=== PATIENT | male | born 1990 | race Caucasian/White ===

== ENCOUNTER 2016-11-20 08:16 | Inpatient (IN) | payer SELFPAY ==
[2016-11-20 08:43] VITALS: BMI 26.1
--- NOTE | 2016-11-20 08:52 | HP ---
COWS - Scale Resting Pulse: 1= [place] 81-100 Sweatin= Chills/Flushing Restless Observation: 1= Difficult to Sit Still Pupil Size: 0= Normal to Room Light Bone or Joint Aches: 2= Severe Diffuse Aches Runny Nose/ Eye Tearin= Runny Nose/Eyes GI Upset > 30mins: 2= Nausea/Diarrhea Tremor Observation: 1= Tremor [place], Not Seen Yawning Observation: 1= 1-2x During Session Anxiety or Irritability: 1=Feels Anxious/Irritable Goose Flesh Skin: 0=Smooth Skin COWS Score: 12 Admission ROS BHS - HPI Chief Complaint: I'm tired, it's crazy what I have to do to get the pills,I want to stop, I want my life back Allergies/Adverse Reactions: Allergies Allergy/AdvReac Type Severity Reaction Status Date / Time No Known Allergies Allergy Verified 11/19/16 19:50 History of Present Illness: 26 yo white gentleman here for detox from oxycodone - first attempt at detox, previously in rehab [facility] for cannabis dependence. No seizure, never on methadone program. States was given oxycodone by previous girlfriend and got ' hooked'. Exam Limitations: Clinical Condition - Ebola screening Have you traveled outside of the country in the last 21 days: No Have you had contact with anyone from an Ebola affected area: No Have you been sick,other than usual withdrawal symptoms: No Do you have a fever: No - Review of Systems Constitutional: Chills, Loss of Appetite, Malaise, Changes in sleep EENT: reports: Nose Congestion Respiratory: reports: No Symptoms reported Cardiac: reports: No Symptoms Reported GI: reports: Nausea, Poor Appetite : reports: No Symptoms Reported Musculoskeletal: reports: Back Pain, Muscle Pain Integumentary: reports: No Symptoms Reported Neuro: reports: Headache Endocrine: reports: No Symptoms Reported Hematology: reports: No Symptoms Reported Psychiatric: reports: Judgement Intact, Mood/Affect Appropiate, Anxious Other Systems: Reviewed and Negative Patient History - Patient Medical History Hx Anemia: No Hx Asthma: No Hx Chronic Obstructive Pulmonary Disease (COPD): No Hx Cancer: No Hx Cardiac Disorders: No Hx Congestive Heart Failure: No Hx Hypertension: No Hx Hypercholesterolemia: No Hx Seizures: No Hx Dementia: No Hx Diabetes: No Hx Gastrointestinal Disorders: No Hx Liver Disease: No Hx Genitourinary Disorders: No Hx Sexually Transmitted Disorders: No Hx Renal Disease (ESRD): No Hx Thyroid Disease: No Hx Human Immunodeficiency Virus (HIV): No Hx Hepatitis C: No Hx Depression: No Hx Suicide Attempt: No Hx Bipolar Disorder: No Hx Schizophrenia: No - Patient Surgical History Past Surgical History: No - PPD History Previous Implant?: No Implanted On Prior [facility] Admission?: No PPD to be Administered?: Yes - Reproductive History Patient is a Female of Child Bearing Age (11 -55 yrs old): No (male) - Smoking Cessation Smoking history: Current every day smoker Have you smoked in the past 12 months: Yes Aproximately how many cigarettes per day: 10 Hx Chewing Tobacco Use: No Initiated information on smoking cessation: Yes 'Breaking Loose' booklet given: 11/20/16 (given on floor) - Substance & Tx. History Hx Alcohol Use: No Hx Substance Use: Yes Substance Use Type: Opiates Hx Substance Use Treatment: Yes ([facility] 2012) - Substances Abused oxycodone Route: Oral Frequency: Daily Amount used: six 30mg tabletes Age of first use: 23 Date of Last Use: 11/19/16 Family Disease History - Family Disease History Family Disease History: Diabetes: Father (alcohol) Admission Physical Exam BHS - Vital Signs Vital Signs: Vital Signs - 24 hr 11/20/16 08:40 Temperature 97.6 F Pulse Rate 85 Respiratory 20 Rate - Physical General Appearance: Yes: Nourished, Appropriately Dressed, Mild Distress, Anxious HEENTM: Yes: Hearing grossly Normal, Normal ENT Inspection, Normocephalic, Normal Voice, Pharynx Normal, Nasal Congestion, Rhinorrhea Respiratory: Yes: Normal Breath Sounds, No Respiratory Distress Neck: Yes: No masses,lesions,Nodules, Supple Breast: Yes: Breast Exam Deferred Cardiology: Yes: Regular Rhythm, Regular Rate Abdominal: Yes: Soft Genitourinary: Yes: Within Normal Limits Back: Yes: Normal Inspection Musculoskeletal: Yes: full range of Motion, Gait Steady Extremities: Yes: Normal Inspection, Normal Range of Motion, Non-Tender Neurological: Yes: Fully Oriented, Alert, Normal Mood/Affect, Normal Response Integumentary: Yes: Normal Color, Warm Lymphatic: Yes: Within Normal Limits - Diagnostic (1) Opioid dependence with withdrawal Current Visit: Yes Status: Chronic (2) Nicotine dependence Current Visit: Yes Status: Chronic Qualifiers: Nicotine product type: cigarettes Substance use status: uncomplicated Qualified Code(s): F17.210 - Nicotine dependence, cigarettes, uncomplicated Cleared for Admission [facility] - Detox or Rehab [facility] Level of Care: Medically Managed Detox Regimen/Protocol: Methadone [facility] Breath Alcohol Content Breath Alcohol Content: 0 Urine Drug Screen - Results Drug Screen Negative: No Urine Drug Screen Results: MTD-Methadone, OXY-Oxycodone
[2016-11-20] MEDS ORDERED: MAGNESIUM HYDROX 2400MG/30ML ORAL SUSPENSION 30 ML CUP PO PRN (08:59)
[2016-11-20] MEDS ORDERED: MAG HYDROX/AL HYDROX/SIMETH 30 ML UNIT-DOSE CUP PO PRN (08:59)
[2016-11-20] MEDS ORDERED: MAGNESIUM CITRATE 300 ML BOTTLE PO PRN (08:59)
[2016-11-20] MEDS ORDERED: LOPERAMIDE HCL 2 MG CAPSULE PO PRN (08:59)
[2016-11-20] MEDS ORDERED: diphenhydrAMINE HCL 50 MG CAPSULE PO PRN (08:59)
[2016-11-20] MEDS ORDERED: guaiFENesin/D-METHORPHAN HB 10 ML UNIT-DOSE CUPS PO PRN (08:59)
[2016-11-20] MEDS ORDERED: ACETAMINOPHEN 325 MG TABLET (FP) PO PRN (08:59)
[2016-11-20] MEDS ORDERED: MENTHOL/PHENOL 1 EACH UD MM PRN (08:59)
[2016-11-20] MEDS ORDERED: hydrOXYzine PAMOATE 50 MG CAPSULE (FP) PO PRN (08:59)
[2016-11-20] MEDS: diazePAM 5 MG TABLET PO PRN ×3 (10:59→22:37)
[2016-11-20] MEDS ORDERED: METHADONE HCL 10 MG TABLET (FOR DETOX USE ONLY) PO ONE ×2 (10:59→23:00)
[2016-11-20] MEDS: PRENATAL VITAMINS W/ FOLIC ACID TABLET (FP) PO SCH (11:04)
[2016-11-20] MEDS: IBUPROFEN 400 MG TABLET (FP) PO PRN (11:05)
[2016-11-20 19:09] LABS: URINE APPEARANCE CLEAR; URINE BILIRUBIN NEGATIVE (NEGATIVE); URINE BLOOD NEGATIVE (NEGATIVE); URINE COLOR YELLOW; URINE GLUCOSE (UA) NEGATIVE (NEGATIVE); URINE KETONE TRACE (NEGATIVE); URINE LEUK ESTERASE NEGATIVE (NEGATIVE); URINE NITRITE NEGATIVE (NEGATIVE); URINE PROTEIN NEGATIVE (NEGATIVE); URINE UROBILINOGEN NEGATIVE E.U./dl (0.2-1.0)
[2016-11-20] MEDS: THIAMINE HCL 100 MG TABLET (FP) PO SCH (22:36)
[2016-11-21] MEDS: P-EPHED 60MG/TRIPROLIDI 2.5MG TABLET PO PRN ×2 (03:18→12:11)
[2016-11-21] MEDS ORDERED: METHADONE HCL 10 MG TABLET (FOR DETOX USE ONLY) PO ONE (10:00)
[2016-11-21] MEDS: PRENATAL VITAMINS W/ FOLIC ACID TABLET (FP) PO SCH (10:22)
[2016-11-21] MEDS: diazePAM 5 MG TABLET PO PRN ×3 (10:24→22:19)
[2016-11-21 10:28] LABS: MCH 29.2 pg (25.7-33.7); MCHC 33.4 g/dl (32.0-35.9); MEAN CELL VOLUME 87.4 fl (80-96); MEAN PLT VOLUME 8.4 fl (7.5-11.1); PLATELET COUNT 207 K/MM3 (134-434); RDW 14.1 % (11.9-15.9); WHITE BLOOD COUNT 9.2 K/mm3 (4.0-10.0)
[2016-11-21 10:43] LABS: ALBUMIN 3.7 g/dl (3.4-5.0); ANION GAP 8 (8-16); CO2 29 mmol/L (21-32); GLUCOSE,RANDOM 77 mg/dL (74-106)
[2016-11-21 10:48] LABS: ALK PHOS 50 U/L (45-117); BILIRUBIN,TOTAL 0.5 mg/dL (0.2-1.0); CREATININE 0.9 mg/dL (0.7-1.3); SGOT/AST 9 U/L (15-37); SGPT/ALT 17 U/L (12-78); TOT PROT 6.5 g/dl (6.4-8.2)
[2016-11-21 11:32] LABS: HIV 1 & 2 AB NEGATIVE; HIV 1 AGp24 NEGATIVE
[2016-11-21] MEDS: NICOTINE POLACRILEX 2 MG GUM BUC PRN ×2 (12:55→17:10)
--- NOTE | 2016-11-21 13:55 | PN ---
S COWS - Scale Resting Pulse: 0= [place] 80 or Below Sweatin= No chills or Flushing Restless Observation: 3= Extraneous Movement Pupil Size: 2= Moderately Dilated Bone or Joint Aches: 2= Severe Diffuse Aches Runny Nose/ Eye Tearin= Runny Nose/Eyes GI Upset > 30mins: 2= Nausea/Diarrhea Tremor Observation of Outstretched Hands: 2= Slight Tremor Visible Yawning Observation: 0= None Anxiety or Irritability: 2=Irritable/Anxious Goose Flesh Skin: 0=Smooth Skin COWS Score: 15 BHS Progress Note (SOAP) Subjective: Interrupted sleep, sweating, nausea, anxiety Objective: 11/21/16 13:54 Last Vital Signs Temp Pulse Resp BP Pulse Ox 97.8 F 91 H 19 121/75 11/21/16 13:22 11/21/16 13:22 11/21/16 13:22 11/21/16 13:22 Laboratory Tests 11/20/16 11/21/16 11/21/16 Unknown 08:00 08:00 WBC 9.2 RBC 4.44 Hgb 13.0 Hct 38.8 MCV 87.4 MCHC 33.4 RDW 14.1 Plt Count 207 D MPV 8.4 Sodium 143 Potassium 3.8 Chloride 106 Carbon Dioxide 29 Anion Gap 8 BUN 17 Creatinine 0.9 Creat Clearance w eGFR > 60 Random Glucose 77 Calcium 9.0 Total Bilirubin 0.5 D AST 9 L ALT 17 Alkaline Phosphatase 50 Total Protein 6.5 Albumin 3.7 Urine Color Yellow Urine Appearance Clear Urine pH 5.0 Ur Specific [place] 1.023 Urine Protein Negative Urine Glucose (UA) Negative Urine Ketones Trace H Urine Blood Negative Urine Nitrite Negative Urine Bilirubin Negative Urine Urobilinogen Negative Ur Leukocyte Esterase Negative RPR Titer HIV 1&2 Antibody Screen HIV P24 Antigen 11/21/16 11/21/16 08:00 08:00 WBC RBC Hgb Hct MCV MCHC RDW Plt Count MPV Sodium Potassium Chloride Carbon Dioxide Anion Gap BUN Creatinine Creat Clearance w eGFR Random Glucose Calcium Total Bilirubin AST ALT Alkaline Phosphatase Total Protein Albumin Urine Color Urine Appearance Urine pH Ur Specific [place] Urine Protein Urine Glucose (UA) Urine Ketones Urine Blood Urine Nitrite Urine Bilirubin Urine Urobilinogen Ur Leukocyte Esterase RPR Titer Nonreactive HIV 1&2 Antibody Screen Negative HIV P24 Antigen Negative Labs noted Assessment: 11/21/16 13:54 Withdrawal symptoms Plan: Continue detox
[2016-11-21] MEDS: IBUPROFEN 400 MG TABLET (FP) PO PRN (17:43)
[2016-11-21] MEDS: THIAMINE HCL 100 MG TABLET (FP) PO SCH (22:18)
[2016-11-22] MEDS: diazePAM 5 MG TABLET PO PRN ×4 (05:26→22:09)
[2016-11-22] MEDS ORDERED: METHADONE HCL 5 MG TABLET (FOR DETOX USE ONLY) PO ONE (10:00)
[2016-11-22] MEDS: PRENATAL VITAMINS W/ FOLIC ACID TABLET (FP) PO SCH (10:11)
--- NOTE | 2016-11-22 11:41 | PN ---
BHS COWS - Scale Resting Pulse: 1= [place] 81-100 Sweatin= Chills/Flushing Restless Observation: 3= Extraneous Movement Pupil Size: 1= Pupils >than Normal Bone or Joint Aches: 2= Severe Diffuse Aches Runny Nose/ Eye Tearin= Runny Nose/Eyes GI Upset > 30mins: 2= Nausea/Diarrhea Tremor Observation of Outstretched Hands: 2= Slight Tremor Visible Yawning Observation: 1= 1-2x During Session Anxiety or Irritability: 2=Irritable/Anxious Goose Flesh Skin: 0=Smooth Skin COWS Score: 17 BHS Progress Note (SOAP) Subjective: ALERT,IRRITABLE,ANXIOUS,INTERRUPTED SLEEP,PAIN IN THE BODY A AND BACK Objective: 11/22/16 11:40 Vital Signs Temperature 96.4 F L 11/22/16 09:52 Pulse Rate 85 11/22/16 09:52 Respiratory Rate 18 11/22/16 09:52 Blood Pressure 118/70 11/22/16 09:52 O2 Sat by Pulse Oximetry (%) EKG NSR NORMAL ECG 11/22/16 11:40 Laboratory Last Values WBC 9.2 K/mm3 (4.0-10.0) 11/21/16 08:00 RBC 4.44 M/mm3 (4.00-5.60) 11/21/16 08:00 Hgb 13.0 GM/dL (11.7-16.9) 11/21/16 08:00 Hct 38.8 % (35.4-49) 11/21/16 08:00 MCV 87.4 fl (80-96) 11/21/16 08:00 MCHC 33.4 g/dl (32.0-35.9) 11/21/16 08:00 RDW 14.1 % (11.9-15.9) 11/21/16 08:00 Plt Count 207 K/MM3 (134-434) D 11/21/16 08:00 MPV 8.4 fl (7.5-11.1) 11/21/16 08:00 Sodium 143 mmol/L (136-145) 11/21/16 08:00 Potassium 3.8 mmol/L (3.5-5.1) 11/21/16 08:00 Chloride 106 mmol/L (98-107) 11/21/16 08:00 Carbon Dioxide 29 mmol/L (21-32) 11/21/16 08:00 Anion Gap 8 (8-16) 11/21/16 08:00 BUN 17 mg/dL (7-18) 11/21/16 08:00 Creatinine 0.9 mg/dL (0.7-1.3) 11/21/16 08:00 Creat Clearance w eGFR > 60 (>60) 11/21/16 08:00 Random Glucose 77 mg/dL (74-106) 11/21/16 08:00 Calcium 9.0 mg/dL (8.5-10.1) 11/21/16 08:00 Total Bilirubin 0.5 mg/dL (0.2-1.0) D 11/21/16 08:00 AST 9 U/L (15-37) L 11/21/16 08:00 ALT 17 U/L (12-78) 11/21/16 08:00 Alkaline Phosphatase 50 U/L (45-117) 11/21/16 08:00 Total Protein 6.5 g/dl (6.4-8.2) 11/21/16 08:00 Albumin 3.7 g/dl (3.4-5.0) 11/21/16 08:00 Urine Color Yellow 11/20/16 Unknown Urine Appearance Clear 11/20/16 Unknown Urine pH 5.0 (5.0-8.0) 11/20/16 Unknown Ur Specific [place] 1.023 (1.001-1.035) 11/20/16 Unknown Urine Protein Negative (NEGATIVE) 11/20/16 Unknown Urine Glucose (UA) Negative (NEGATIVE) 11/20/16 Unknown Urine Ketones Trace (NEGATIVE) H 11/20/16 Unknown Urine Blood Negative (NEGATIVE) 11/20/16 Unknown Urine Nitrite Negative (NEGATIVE) 11/20/16 Unknown Urine Bilirubin Negative (NEGATIVE) 11/20/16 Unknown Urine Urobilinogen Negative E.U./dl (0.2-1.0) 11/20/16 Unknown Ur Leukocyte Esterase Negative (NEGATIVE) 11/20/16 Unknown RPR Titer Nonreactive (NONREACTIVE) 11/21/16 08:00 HIV 1&2 Antibody Screen Negative 11/21/16 08:00 HIV P24 Antigen Negative 11/21/16 08:00 Assessment: 11/22/16 11:41 WITHDRAWAL SYMPTOM Plan: CONTINUE DETOX
[2016-11-22] MEDS: NICOTINE POLACRILEX 2 MG GUM BUC PRN (16:59)
[2016-11-22] MEDS: THIAMINE HCL 100 MG TABLET (FP) PO SCH (22:09)
[2016-11-23] MEDS: P-EPHED 60MG/TRIPROLIDI 2.5MG TABLET PO PRN ×2 (07:08→22:32)
[2016-11-23] MEDS: diazePAM 5 MG TABLET PO PRN (07:46)
[2016-11-23] MEDS: IBUPROFEN 400 MG TABLET (FP) PO PRN (07:46)
[2016-11-23] MEDS ORDERED: METHADONE HCL 5 MG TABLET (FOR DETOX USE ONLY) PO ONE (10:00)
[2016-11-23] MEDS ORDERED: METHADONE HCL 10 MG TABLET (FOR DETOX USE ONLY) PO ONE (10:00)
--- NOTE | 2016-11-23 10:14 | PN ---
BHS Progress Note (SOAP) Subjective: ALERT,IRRITABLE,ANXIOUS,INTERRUPTED SLEEP,PAIN IN THE RIGHT EAR Objective: 11/23/16 10:12 Vital Signs Temperature 96.6 F L 11/23/16 09:37 Pulse Rate 79 11/23/16 09:37 Respiratory Rate 18 11/23/16 09:37 Blood Pressure 110/74 11/23/16 09:37 O2 Sat by Pulse Oximetry (%) Assessment: 11/23/16 10:12 WITHDRAWAL SYMPTOM EAR WAX BOTH EAR,PAIN IN THE RIGHT EAR Plan: CONTINUE DETOX.DEBROX 5 GTTS RIGHT EAR BID,DISCHARGE IN AM
[2016-11-23] MEDS: PRENATAL VITAMINS W/ FOLIC ACID TABLET (FP) PO SCH (10:19)
[2016-11-23] MEDS: CARBAMIDE PEROXIDE 6.5% OTIC 15 ML BOTTLE AD SCH ×2 (10:26→22:23)
[2016-11-23] MEDS: NICOTINE POLACRILEX 2 MG GUM BUC PRN (12:34)
[2016-11-23] MEDS: THIAMINE HCL 100 MG TABLET (FP) PO SCH (22:14)
[2016-11-24] MEDS ORDERED: METHADONE HCL 5 MG TABLET (FOR DETOX USE ONLY) PO ONE (06:00)
[2016-11-24 06:28] VITALS: BP 98/63; PULSE 79; TEMP 96.3
[2016-11-24] MEDS: IBUPROFEN 400 MG TABLET (FP) PO PRN (06:35)
--- NOTE | 2016-11-24 08:20 | PN ---
S Progress Note (SOAP) Subjective: ALERT,NO COMPLAINT Objective: 11/24/16 08:18 Vital Signs Temperature 96.3 F L 11/24/16 06:28 Pulse Rate 79 11/24/16 06:28 Respiratory Rate 18 11/24/16 06:28 Blood Pressure 98/63 11/24/16 06:28 O2 Sat by Pulse Oximetry (%) Assessment: 11/24/16 08:19 DETOX COMPLETED,NO WITHDRAWAL SYMPTOM Plan: DISCHARGE TODAY,FOLLOW UP WITH AFTER CARE PROGRAM ARRANGEMENT
--- NOTE | 2016-11-24 08:22 | DS ---
[facility] Detox Discharge Summary Admission Date: 11/20/16 Discharge Date: 11/24/16 - History Present History: Opioid Dependence Additional Comments: FOLLOW UP WITH AFTER [facility] PROGRAM ARRANGEMENT AND PMD FOR MEDICAL PROBLEM Pertinent Past History: NICOTINE DEPENDENCE - Physical Exam Results Vital Signs: Vital Signs Temperature 96.3 F L 11/24/16 06:28 Pulse Rate 79 11/24/16 06:28 Respiratory Rate 18 11/24/16 06:28 Blood Pressure 98/63 11/24/16 06:28 O2 Sat by Pulse Oximetry (%) Pertinent Admission Physical Exam Findings: WITHDRAWAL SYMPTOM - Treatment Hospital Course: Detox Protocol Followed, Detoxed Safely, Responded well, Discharged Condition Good Patient has Accepted a Rehab Referral to: DECLINED - Medication Discharge Medications: Ambulatory Orders NK [No Known Home Medication] 11/20/16 - AMA Did Patient Leave Against Medical Advice: No
--- NOTE | 2016-11-24 09:48 | EKG ---
Test Reason : Blood Pressure : / mmHG Vent. Rate : 066 BPM Atrial Rate : 066 BPM P-R Int : 112 ms QRS Dur : 080 ms QT Int : 392 ms P-R-T Axes : -03 055 067 degrees QTc Int : 410 ms NORMAL SINUS RHYTHM NORMAL ECG WHEN COMPARED WITH ECG OF 19-NOV-2016 22:31, NO SIGNIFICANT CHANGE WAS FOUND Confirmed by LUDWIN TORRES MD ([id number]) on 11/24/2016 9:47:49 AM Referred By: Confirmed By:LUDWIN TORRES MD
[2016-11-24] MEDS ORDERED: METHADONE HCL 10 MG TABLET (FOR DETOX USE ONLY) PO ONE (10:00)
[2016-11-25] MEDS ORDERED: METHADONE HCL 5 MG TABLET (FOR DETOX USE ONLY) PO ONE (06:00)
== END 2016-11-24 08:55 | disposition home or self-care (01) | DRG 773 ==
LOC: YASAS 08:16 → Y3N 10:07
PROVIDERS: ADMIT Internal Medicine; ATTEND Internal Medicine
PROC: HZ2ZZZZ Detoxification Services for Substance Abuse Treatment (ICD-10-PCS; principal; 2016-11-20)
DX: F11.23 Opioid dependence with withdrawal (principal); F17.210 Nicotine dependence, cigarettes, uncomplicated; H92.01 Otalgia, right ear; H61.21 Impacted cerumen, right ear
CPT/HCPCS: 36415; 80053; 81003; 85027; 86593; 87389; 93005; 93010